=== PATIENT | female | born 1965 | race Two or more races ===

== ENCOUNTER 2017-03-08 13:39 | Emergency (ER) | payer SELFPAY ==
[2017-03-08 14:17] VITALS: TEMP 98.2; BMI 21.9
[2017-03-08] MEDS ORDERED: FAMOTIDINE 20 MG/50 ML IVPB 50 ML IVPB ONE ×2 (14:45→15:24)
[2017-03-08] MEDS ORDERED: MAG HYDROX/AL HYDROX/SIMETH 30 ML UNIT-DOSE CUP PO ONE (14:45)
[2017-03-08] MEDS ORDERED: SODIUM CHLORIDE 1,000 ML IV STA (14:45)
--- NOTE | 2017-03-08 14:45 | PDOC ---
History of Present Illness - General History Source: Patient Exam Limitations: No Limitations <Nely Cook - Last Filed: 03/08/17 16:20> - General History Source: Patient Exam Limitations: No Limitations - History of Present Illness Initial Comments: 03/08/17 16:06 The patient is a 51 year old female, with a significant past medical history of a fatty liver, who presents to the emergency room complaining of epigastric pain and nausea since yesterday. The patient describes the pain as achy, 7/10 in severity, that sometimes makes her double over. The pain was intermittent yesterday, but became constant today. The pain is alleviated when she is laying down, and exacerbated when moving around and being active. Her last meal today was rice and beans for lunch. She states that she has had this pain for years and was told she has ulcers and gastritis. She noticed that spicy food sometimes triggers these episodes of pain. Her most recent episode was last week. Denies fever, chills, vomiting. Denies diarrhea, constipation. Denies urinary changes. Denies recent travel. Allergies: Crabs and strawberries Social Hx: Tobacco use (7 cigarettes/day). Occasional alcohol use. <Aliyah Patrick - Last Filed: 03/08/17 16:55> - General Chief Complaint: Pain, Acute Stated Complaint: ABD PAIN Time Seen by Provider: 03/08/17 14:09 Past History - Past Medical History Liver Disease: (FATTY LIVER.) Psychiatric Problems: Yes (ANXIETY.) - Psycho/Social/Smoking Cessation Hx Anxiety: No Suicidal Ideation: No Smoking Status: No Smoking History: Current every day smoker Number of Cigarettes Smoked Daily: 10 Information on smoking cessation initiated: No Hx Alcohol Use: No Drug/Substance Use Hx: No Substance Use Type: None <Nely Cook - Last Filed: 03/08/17 16:20> <Aliyah Patrick - Last Filed: 03/08/17 16:55> - Past Medical History Allergies/Adverse Reactions: Allergies Allergy/AdvReac Type Severity Reaction Status Date / Time No Known Allergies Allergy Verified 03/08/17 13:48 Home Medications: Ambulatory Orders Dicyclomine HCl [Bentyl -] 10 mg PO Q6H PRN #28 capsule 03/08/17 Ondansetron HCl [Zofran] 4 mg PO BID PRN #10 tablet 03/08/17 Ranitidine [Zantac -] 150 mg PO DAILY #30 tablet 03/08/17 Review of Systems - Review of Systems Able to Perform ROS?: Yes Comments:: 03/08/17 16:06 GENERAL/CONSTITUTIONAL: No: fever, chills, weakness, loss of appetite. HEAD, EYES, EARS, NOSE AND THROAT: No: change in vision, ear pain, discharge, sore throat, throat swelling. CARDIOVASCULAR: No: chest pain, lightheadedness, palpitations, syncope RESPIRATORY: No: cough, shortness of breath, wheezing, hemoptysis, stridor. GASTROINTESTINAL:+epigastric pain and nausea. No: vomiting, abdominal cramping, diarrhea, rectal bleeding, constipation. GENITOURINARY: No: dysuria, hematuria, frequency, urgency, flank pain. MUSCULOSKELETAL: No: back pain, neck pain, joint pain, muscle swelling or pain SKIN: No: lesions, pallor, rash or easy bruising. NEUROLOGIC: No: headache, vertigo, paresthesias, weakness ENDOCRINE: No: unexplained weight gain or loss HEMATOLOGIC/LYMPHATIC: No: anemia, easy bleeding, swelling nodes <Aliyah Patrick - Last Filed: 03/08/17 16:55> *Physical Exam - Vital Signs Last Vital Signs Temp Pulse Resp BP Pulse Ox 98.2 F 84 18 126/63 99 03/08/17 13:42 03/08/17 13:42 03/08/17 13:42 03/08/17 13:42 03/08/17 13:42 <Nely Cook - Last Filed: 03/08/17 16:20> - Vital Signs Last Vital Signs Temp Pulse Resp BP Pulse Ox 98.2 F 84 18 126/63 99 03/08/17 13:42 03/08/17 13:42 03/08/17 13:42 03/08/17 13:42 03/08/17 13:42 - Physical Exam Comments: 03/08/17 16:07 GENERAL: The patient is in no acute distress. HEAD: Normal with no signs of trauma. EYES: PERRLA, EOMI, sclera anicteric, conjunctiva clear. ENT: Ears normal, nares patent, oropharynx clear without exudates. Moist mucous membranes. NECK: Normal range of motion, supple without lymphadenopathy, JVD, or masses. LUNGS: Breath sounds equal, clear to auscultation bilaterally. No wheezes, and no crackles. HEART:Regular rate and rhythm, normal S1 and S2 without murmur, rub or gallop. ABDOMEN: +epigastric tenderness. Soft, normoactive bowel sounds. No guarding, no rebound. EXTREMITIES: Normal range of motion, no edema. No clubbing or cyanosis. No erythema, or tenderness. NEUROLOGICAL: Cranial nerves II through XII grossly intact. Normal speech. No focal neurological deficits. MUSCULOSKELETAL: Back nontender to palpation, no CVA tenderness SKIN: Warm, Dry, normal turgor, no rashes or lesions noted. <Aliyah Patrick - Last Filed: 03/08/17 16:55> ED Treatment Course - LABORATORY CBC & Chemistry Diagram: 03/08/17 15:20 03/08/17 15:20 <Nely oCok - Last Filed: 03/08/17 16:20> - LABORATORY CBC & Chemistry Diagram: 03/08/17 15:20 03/08/17 15:20 - ADDITIONAL ORDERS Additional order review: Laboratory Results 03/08/17 15:20 Sodium 141 Potassium 3.8 Chloride 105 Carbon Dioxide 31 Anion Gap 5 L BUN 10 Creatinine 0.7 D Creat Clearance w eGFR > 60 Random Glucose 87 Calcium 8.9 Total Bilirubin 0.3 D AST 14 L D ALT 18 Alkaline Phosphatase 69 D Total Protein 6.9 Albumin 3.9 Total Amylase 60 Lipase 142 03/08/17 15:20 RBC 4.28 MCV 89.5 MCHC 32.5 RDW 13.8 MPV 9.7 Neutrophils % 60.7 D Lymphocytes % 32.0 D Monocytes % 6.0 Eosinophils % 0.8 D Basophils % 0.5 - RADIOLOGY Radiograph Interpretation: 03/08/17 16:55 EXAM#: TYPE/EXAM: RESULT: 1960-1954 US/ABDOMEN US -LIMITED Evaluate for cholecystitis. Right upper abdomen ultrasound. The liver is within normal limits in size with a slightly coarse echotexture. Gallbladder is adequately distended without intraluminal stones or thickening of its wall. No intra or extrahepatic bile duct dilatation is seen. The right kidney measures 10.4 cm sagittal length and appears unremarkable. Visualized portion of the pancreas appears unremarkable Visualized portion of the proximal abdominal aorta and inferior vena cava appear unremarkable. IMPRESSION: Slightly coarse echotexture of the liver that may be on the basis of mild fatty infiltration. Please correlate with liver enzymes. No gallstones are identified. Unremarkable examination . Reported By: Arlin Huddleston MD 03/08/17 2168 - Medications Given in the ED: ED Medications Discontinued Medications Generic Name Dose Route Start Last Admin Trade Name Galen PRN Reason Stop Dose Admin Al Hydroxide/Mg Hydroxide 30 ml 03/08/17 14:45 03/08/17 15:30 Mylanta Oral Suspension - PO 03/08/17 14:46 30 ml ONCE ONE Administration Famotidine/Sodium Chloride 50 mls @ 100 mls/hr 03/08/17 14:45 03/08/17 15:30 Pepcid 20 Mg Premixed Ivpb - IVPB 03/08/17 15:14 100 mls/hr ONCE ONE Administration Sodium Chloride 1,000 mls @ 1,000 mls/hr 03/08/17 14:45 03/08/17 15:30 Normal Saline - IV 03/08/17 15:44 1,000 mls/hr ASDIR STA Administration Sucralfate 1 gm 03/08/17 14:47 03/08/17 15:30 Carafate - PO 03/08/17 14:48 1 gm NOW ONE Administration <Aliyah Patrick - Last Filed: 03/08/17 16:55> Medical Decision Making - Medical Decision Making 03/08/17 14:45 A portion of this note was documented by scribe services under my direction. I have reviewed the details of the note, within reason, and agree with the documentation with the following case summary and management plan written by me. Nursing documentation reviewed and incorporated into medical decision making 03/08/17 16:14 This patient is a 51-year-old female with a history of anxiety and fatty liver disease who presents emergency department with a complaint of epigastric abdominal pain. Patient states she's had these symptoms for many years, since her childhood. She has intermittent episodes of abdominal pain. She isn't is not sure if she's ever discussed this with her primary care physician (who she no longer has) (and does not know if she's ever been worked up by a GI doctor) she presents today with a recurrence of symptoms since yesterday She states currently pain is 5/10 At its worse, her pain is 12/10 No radiation to the back (+) nausea, no vomiting No diarrhea No fevers or chills No recent travel out of the country No ill contacts She can not associate her symptoms with eating or not, with any particular food On examination: Epigastric tenderness to palpation No abd distention No 03/08/17 16:20 Laboratory Tests 01/07/15 01/07/15 03/08/17 18:45 18:45 15:20 WBC 8.5 8.1 Hgb 13.1 12.5 Hct 41.2 38.3 Plt Count 226 214 BUN 12 D Creatinine 0.5 L Total Bilirubin Total Amylase Lipase 03/08/17 15:20 WBC Hgb Hct Plt Count BUN 10 Creatinine 0.7 D Total Bilirubin 0.3 D Total Amylase 60 Lipase 142 pt sent to US to evaluate for possible cholelithiasis Will discharge to home once reported 03/08/17 16:28 Upon re assessment, pt states that after having medications, her stomach hurts more and she feels like vomiting Will try bentyl Will send for x ray Will sign out for re assessment <Nely Cook - Last Filed: 03/08/17 16:20> *DC/Admit/Observation/Transfer - Discharge Dispostion Admit: No <Nely Cook - Last Filed: 03/08/17 16:20> - Attestations Scribe Attestion: 03/08/17 16:07 Documentation prepared by THOMAS Negron, acting as medical illustrator for Nely Cook MD. <Aliyah Patrick - Last Filed: 03/08/17 16:55> Diagnosis at time of Disposition: Gastritis Qualifiers: Gastritis type: unspecified gastritis Chronicity: chronic Gastritis bleeding: without bleeding Qualified Code(s): K29.50 - Unspecified chronic gastritis without bleeding - Prescriptions Prescriptions: Dicyclomine HCl [Bentyl -] 10 mg PO Q6H PRN #28 capsule PRN Reason: abdominal pain Ranitidine [Zantac -] 150 mg PO DAILY #30 tablet Ondansetron HCl [Zofran] 4 mg PO BID PRN #10 tablet PRN Reason: Nausea - Referrals Referrals: Haja Solitario MD [Primary Care Provider] - Eric Sibley MD [Staff Physician] - Gerry Naranjo MD [Staff Physician] - - Patient Instructions Printed Discharge Instructions: DI for Gastritis Additional Instructions: Thank you for coming in to the ER today Please take medications as prescribed for pain Please return to the ER for persistent or worsening symptoms Please follow up with the intestinal specialist as we discussed - Post Discharge Activity Work/School Note: Back to Work
[2017-03-08] MEDS ORDERED: SUCRALFATE 1 GM TABLET (FP) PO ONE (14:47)
[2017-03-08] MEDS ORDERED: SUCRALFATE 1 GM TABLET (FP) ONE (15:24)
[2017-03-08 15:27] LABS: BASOPHIL 0.5 % (0-2.0); EOSINOPHIL 0.8 % (0-4.5); MCH 29.1 pg (25.7-33.7); MCHC 32.5 g/dl (32.0-36.0); MEAN CELL VOLUME 89.5 fl (80-96); MEAN PLT VOLUME 9.7 fl (7.5-11.1); NEUTROPHILS 60.7 % (42.8-82.8); PLATELET COUNT 214 K/MM3 (134-434); RDW 13.8 % (11.6-15.6); WHITE BLOOD COUNT 8.1 K/mm3 (4.0-10.0)
[2017-03-08 15:51] LABS: ALBUMIN 3.9 g/dl (3.4-5.0); ALK PHOS 69 U/L (45-117); AMYLASE 60 U/L (25-115); ANION GAP 5 (8-16); BILIRUBIN,TOTAL 0.3 mg/dL (0.2-1.0); CALCIUM 8.9 mg/dL (8.5-10.1); CO2 31 mmol/L (21-32); CREATININE 0.7 mg/dL (0.55-1.02); GLUCOSE,RANDOM 87 mg/dL (74-106); SGOT/AST 14 U/L (15-37); SGPT/ALT 18 U/L (12-78); TOT PROT 6.9 g/dl (6.4-8.2)
[2017-03-08] MEDS ORDERED: DICYCLOMINE HCL 10 MG CAPSULE PO ONE (17:36)
[2017-03-08] MEDS ORDERED: DICYCLOMINE HCL 10 MG CAPSULE ONE (17:44)
[2017-03-08 18:26] VITALS: BP 112/80; PULSE 78
== END 2017-03-08 18:26 | disposition home or self-care (01) ==
LOC: JER 13:39 → SUPCPDRO 13:39 → JER 18:26
PROC: 3E033GC Introduction of Other Therapeutic Substance into Peripheral Vein, Percutaneous Approach (ICD-10-PCS; principal; 2017-03-08)
PROC: 3E0337Z Introduction of Electrolytic and Water Balance Substance into Peripheral Vein, Percutaneous Approach (ICD-10-PCS; 2017-03-08)
DX: K29.50 Unspecified chronic gastritis without bleeding (principal); K76.0 Fatty (change of) liver, not elsewhere classified; F17.210 Nicotine dependence, cigarettes, uncomplicated
CPT/HCPCS: 36415; 76705-TC; 80053; 82150; 83690; 85025; 99282-25

== ENCOUNTER 2017-12-17 00:18 | Emergency (ER) | payer SELFPAY ==
[2017-12-17] MEDS ORDERED: diazePAM 5 MG TABLET PO ONE (00:20)
--- NOTE | 2017-12-17 00:24 | PDOC ---
History of Present Illness - General Chief Complaint: Pain, Acute Stated Complaint: NECK PAIN SINCE SATURDAY Time Seen by Provider: 12/17/17 00:19 History Source: Patient Exam Limitations: No Limitations - History of Present Illness Initial Comments: 12/17/17 00:21 This is a 52-year-old female who comes in complaining of neck pain and spasm progressive 3 days. Patient has taken some ibuprofen without relief. Otherwise patient denies any history of trauma. Patient said she cannot move her neck to the left and it is locked in position. Patient has a history of something similar many many years ago but otherwise has been fine patient has history of acid indigestion otherwise no other medical history. PAST MEDICAL HISTORY: no significant history PAST SURGICAL HISTORY: no significant history FAMILY HISTORY: no pertinant history SOCIAL HISTORY: Pt lives with family and is employed. MEDICATIONS: reviewed ALLERGIES: As per nursing notes Review of Systems General: No fevers or chills, no weakness, no weight loss HEENT: Neck pain and spasm CardioVascular: No chest pain or shortness of breath Respiratory:No cough, or wheezing. Gastrointestinal: no nausea, vomitting, diarrhea or constipation, No rectal bleeding Genitourinary: No dysuria, hematuria, or frequency Musculoskeletal: No joint or muscle pain or swelling Neurologic: No headache, vertigo, dizziness or loss of consciousness Psychiatric: nor depression Skin: No rashes or easy bruising Endocrine: no increased thirst or abnormal weight change Allergic: no skin or latex allergy All other systems reviewed and normal GENERAL: The patient is awake, alert, and fully oriented, in no acute distress. HEAD: Normal with no signs of trauma. Neck: There is no tenderness on palpation of the cervical spine. Patient has significant spasm of the right lateral neck and upper shoulder muscles, EYES: Pupils equal, round and reactive to light, extraocular movements intact, sclera anicteric, conjunctiva clear. EXTREMITIES: Normal range of motion, no edema. NEUROLOGICAL: Normal speech, normal gait. grossly intact PSYCH: Normal mood, normal affect. SKIN: Warm, Dry, normal turgor, no rashes or lesions noted. 12/17/17 01:08 Reevaluation patient's symptoms have resolved after the Valium she feels much better Assessment and plan: This is a 52-year-old female came in with torticollis. Patient was given with relief of her symptoms and spasm. Patient discharged home will follow-up with her primary care doctor Past History - Past Medical History Allergies/Adverse Reactions: Allergies Allergy/AdvReac Type Severity Reaction Status Date / Time No Known Allergies Allergy Verified 12/17/17 00:23 Home Medications: Ambulatory Orders NK [No Known Home Medication] 12/17/17 Liver Disease: (FATTY LIVER.) Psychiatric Problems: Yes (ANXIETY.) - Suicide/Smoking/Psychosocial Hx Smoking Status: No Smoking History: Current every day smoker Number of Cigarettes Smoked Daily: 10 Hx Alcohol Use: No Drug/Substance Use Hx: No Substance Use Type: None *DC/Admit/Observation/Transfer Diagnosis at time of Disposition: Torticollis, acute - Discharge Dispostion Disposition: HOME Condition at time of disposition: Stable Admit: No - Referrals - Patient Instructions Printed Discharge Instructions: DI for Torticollis Additional Instructions: Return to the emergency department immediately with ANY new, persistent or worsening symptoms. Continue any medications as previously prescribed by your physician. You should follow up with your primary doctor as soon as possible regarding today's emergency department visit. . Please make sure your doctor reviews the results of your emergency evaluation. Thank you for coming to the Emergency Department today for your care. It was a pleasure to see you today. Please note that your evaluation is INCOMPLETE until you follow-up with your doctor. - Post Discharge Activity
[2017-12-17 00:28] VITALS: BP 105/65; PULSE 72; TEMP 97.8; BMI 22.4
== END 2017-12-17 01:38 | disposition home or self-care (01) ==
LOC: FER 00:18
DX: M43.6 Torticollis (principal); F32.9 Major depressive disorder, single episode, unspecified; F17.210 Nicotine dependence, cigarettes, uncomplicated; K76.0 Fatty (change of) liver, not elsewhere classified
CPT/HCPCS: 99281-25

== ENCOUNTER 2018-08-28 16:23 | Emergency (ER) | payer OTHER ==
[2018-08-28 16:44] VITALS: BP 149/91; PULSE 84; TEMP 98.5; BMI 22.0
[2018-08-28] MEDS ORDERED: DEXAMETHASONE SOD PHOSPHATE 10 MG/1 ML VIAL IM ONE (17:20)
--- NOTE | 2018-08-28 17:23 | PDOC ---
History of Present Illness - General Chief Complaint: Pain, Acute Stated Complaint: PAIN Time Seen by Provider: 08/28/18 16:53 History Source: Patient Exam Limitations: No Limitations - History of Present Illness Initial Comments: 08/28/18 17:18 HISTORY OF PRESENT ILLNESS: 53-year-old woman who presents emergency department for evaluation of left-sided neck and upper back pain which is worsening over 8 months. Patient reports she was seen and evaluated for emergency department in November of this year and was given a 4 day supply of Valium which has helped relieve her pain at that time. Patient reports the pain is been consistence and has not been evaluated by her primary doctor due to lack of insurance. Patient has been taking Motrin 800 mg every 6 hours [id number] for the past 8 months. Patient reports nosebleeds for 1 day every month for the past 3 months. Patient also reports she is a shooting pain which starts from her left neck and extends into her left elbow. She denies any loss of sensation or inability to move. No recent travel or sick contacts. PAST MEDICAL HISTORY: see hpi SURGICAL HISTORY: Denies ALLERGIES: No known drug allergies REVIEW OF SYSTEMS General/Constitutional: Denies fever or chills. Denies weakness, weight change. HEENT: Denies change in vision. Denies ear pain or discharge. Denies sore throat. Cardiovascular: Denies chest pain or shortness of breath. Respiratory: Denies cough, wheezing, or hemoptysis. Gastrointestinal: Denies nausea, vomiting, diarrhea or constipation. Denies rectal bleeding. Genitourinary: Denies dysuria, frequency, or change in urination. Musculoskeletal: See history of present illness Skin and breasts: Denies rash or easy bruising. Neurologic: Denies headache, vertigo, loss of consciousness, or loss of sensation. Psychiatric: Denies depression or anxiety. Endocrine: Denies increased thirst. Denies abnormal weight change. Hematologic/Lymphatic: Denies anemia, easy bleeding, or history of blood clots. Allergic/Immunologic: Denies hives or skin allergy. Denies latex allergy. PHYSICAL EXAM General Appearance: Well-appearing, appropriately dressed. No apparent distress , no intoxication. HEENT: EOMI, PERRLA, normal ENT inspection, normal voice, TMs normal, pharynx normal. No conjunctival pallor. No photophobia, scleral icterus. Neck: Supple. Trachea midline. No tenderness, rigidity, carotid bruit, stridor , lymphadenopathy, or thyromegaly. Respiratory/Chest: Lungs CTAB. No shortness of breath, chest tenderness, respiratory distress, accessory muscle use. No crackles, rales, rhonchi, stridor , wheezing, dullness Cardiovascular: RRR. S1, S2. No JVD, murmur, bradycardia, tachycardia. Musculoskeletal/Extremities: Normal inspection. FROM of all extremities, normal capillary refill. Pelvis Stable. No CVA tenderness. No tenderness to extremities, pedal edema, swelling, erythema or deformity. Neurologic: salon coordinator II-XII intact. Fully oriented, alert. Appropriate mood/affect. Motor strength 5/5. No appreciable EOM palsy, facial droop or sensory deficit. Past History - Past Medical History Allergies/Adverse Reactions: Allergies Allergy/AdvReac Type Severity Reaction Status Date / Time No Known Allergies Allergy Verified 08/28/18 16:44 Home Medications: Ambulatory Orders Diazepam [Valium] 5 mg PO DAILY #4 tablet MDD 1 08/28/18 COPD: No Liver Disease: (FATTY LIVER.) Psychiatric Problems: Yes (ANXIETY.) - Immunization History Immunization Up to Date: Yes - Suicide/Smoking/Psychosocial Hx Smoking Status: No Smoking History: Current every day smoker Have you smoked in the past 12 months: Yes Number of Cigarettes Smoked Daily: 10 Information on smoking cessation initiated: No 'Breaking Loose' booklet given: 12/17/17 Hx Alcohol Use: No Drug/Substance Use Hx: No Substance Use Type: None *Physical Exam - Vital Signs Last Vital Signs Temp Pulse Resp BP Pulse Ox 98.5 F 84 16 149/91 100 08/28/18 16:41 08/28/18 16:41 08/28/18 16:41 08/28/18 16:41 08/28/18 16:41 Moderate Sedation - Procedure Monitoring Vital Signs: Procedure Monitoring Vital Signs Temperature 98.5 F 08/28/18 16:41 Pulse Rate 84 08/28/18 16:41 Respiratory Rate 16 08/28/18 16:41 Blood Pressure 149/91 08/28/18 16:41 O2 Sat by Pulse Oximetry (%) 100 08/28/18 16:41 Medical Decision Making - Medical Decision Making 08/28/18 17:29 A/P: 53-year-old woman with torticollis for 8 months Upper extremity strength 5/5 No palpable muscle spasms Pain and upper back worsens with straightening of the cervical spine Cranial nerves II through XII grossly intact Gait steady This patient has been taking Motrin [id number] for 8 months and is experiencing nosebleeds, I will treat the patient with Decadron here and given a prescription for Valium as outpatient. Patient was encouraged to follow-up with her primary doctor for continued evaluation and potential physical therapy. Patient states she had no primary doctor and referral for Dr. Lambert has been provided. *DC/Admit/Observation/Transfer Diagnosis at time of Disposition: Left torticollis - Discharge Dispostion Disposition: HOME Condition at time of disposition: Stable Decision to Admit order: No - Prescriptions Prescriptions: Diazepam [Valium] 5 mg PO DAILY #4 tablet MDD 1 - Referrals Referrals: Eder Lambert MD [Staff Physician] - - Patient Instructions Additional Instructions: Rest, no heavy lifting or exercise until pain is resolved Hot soaks to neck and low back as often as possible/hot showers or Jacuzzis No massage or therapy until spasm is gone Continue ibuprofen 2-200 mg tablets every 6 hours for the next 3 days then as needed for pain and swelling Valium 5mg every day as needed You've be given a referral for primary doctor. Please call her for follow-up for continued evaluation and treatment. If not significant improvement within 24 hours with medication and rest regime, followup with private physician for change in medications and /or therapy. - Post Discharge Activity
[2018-08-28] MEDS ORDERED: DEXAMETHASONE SOD PHOSPHATE 10 MG/1 ML VIAL ONE (17:24)
== END 2018-08-28 17:51 | disposition home or self-care (01) ==
LOC: JERFT 16:23
PROC: 3E0233Z Introduction of Anti-inflammatory into Muscle, Percutaneous Approach (ICD-10-PCS; principal; 2018-08-28)
DX: M43.6 Torticollis (principal)
CPT/HCPCS: 99281-25; J1100

== ENCOUNTER 2018-12-27 20:44 | Emergency (ER) | payer OTHER ==
[2018-12-27 20:53] VITALS: BP 144/87; PULSE 86; TEMP 98.4; BMI 22.0
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
[2018-12-27] MEDS ORDERED: ACETAMINOPHEN 1000 MG/100 ML VIAL (NON FORMULARY) IVPB ONE (21:40)
[2018-12-27 21:50] LABS: EPI CELLS 1.7 /HPF (0-5); URINE APPEARANCE CLOUDY; URINE BACTERIA >9000 /hpf (NEGATIVE); URINE BILIRUBIN NEGATIVE (NEGATIVE); URINE CASTS 4 /hpf (0-8); URINE COLOR YELLOW; URINE GLUCOSE (UA) NEGATIVE (NEGATIVE); URINE KETONE NEGATIVE (NEGATIVE); URINE LEUK ESTERASE 2+ (NEGATIVE); URINE NITRITE POSITIVE (NEGATIVE); URINE PROTEIN NEGATIVE (NEGATIVE); URINE RBC 2 /hpf (0-4); URINE UROBILINOGEN 0.2 mg/dL (0.2-1.0); URINE WBC 61 /hpf (0-5)
[2018-12-27] MEDS ORDERED: ACETAMINOPHEN INJECTION 100 ML IVPB ONE (21:54)
[2018-12-27 22:21] LABS: BASO % 0.6 % (0-2.0); EOS % 0.5 % (0-4.5); HEMATOCRIT 36.6 % (32.4-45.2); HEMOGLOBIN 12.1 GM/dL (10.7-15.3); LYMPH % 32.7 % (8-40); MEAN CELL VOLUME 90.9 fl (80-96); MEAN PLT VOLUME 9.3 fl (7.5-11.1); MONO % 6.2 % (3.8-10.2); PLATELET COUNT 240 K/MM3 (134-434); RBC 4.02 M/mm3 (3.60-5.2); RDW 14.6 % (11.6-15.6); WHITE BLOOD COUNT 8.8 K/mm3 (4.0-10.0)
[2018-12-27 22:35] LABS: INR 0.95 (0.83-1.09); PROTHROMBIN TIME (PATIENT) 11.2 SEC (9.7-13.0)
[2018-12-27 22:37] LABS: ACTIVATED PTT 38.6 SECONDS (25.2-36.5)
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
[2018-12-27 22:54] LABS: ALBUMIN 3.8 g/dl (3.4-5.0); ALK PHOS 74 U/L (45-117); ANION GAP 7 MMOL/L (8-16); BILIRUBIN,TOTAL 0.1 mg/dL (0.2-1); BLOOD UREA NITROGEN 16 mg/dL (7-18); CALCIUM 8.5 mg/dL (8.5-10.1); CHLORIDE 110 mmol/L (98-107); CO2 26 mmol/L (21-32); CREATININE 0.6 mg/dL (0.55-1.3); GLUCOSE,RANDOM 94 mg/dL (74-106); POTASSIUM 3.8 mmol/L (3.5-5.1); SGOT/AST 15 U/L (15-37); SGPT/ALT 19 U/L (13-61); SODIUM 143 mmol/L (136-145); TOT PROT 6.5 g/dl (6.4-8.2)
--- NOTE | 2018-12-29 10:15 | EKG ---
Test Reason : Blood Pressure : / mmHG Vent. Rate : 062 BPM Atrial Rate : 062 BPM P-R Int : 154 ms QRS Dur : 078 ms QT Int : 398 ms P-R-T Axes : 051 066 047 degrees QTc Int : 403 ms NORMAL SINUS RHYTHM NORMAL ECG WHEN COMPARED WITH ECG OF 08-JAN-2004 16:57, NO SIGNIFICANT CHANGE WAS FOUND Confirmed by DAPHNEY FORD MD ([id number]) on 12/29/2018 10:14:59 AM Referred By: Confirmed By:DAPHNEY FORD MD
== END 2018-12-28 00:53 | disposition home or self-care (01) ==
LOC: JER 20:44
PROC: 3E033NZ Introduction of Analgesics, Hypnotics, Sedatives into Peripheral Vein, Percutaneous Approach (ICD-10-PCS; principal; 2018-12-27)
DX: M54.2 Cervicalgia (principal); V43.52XA Car driver injured in collision with other type car in traffic accident, initial encounter; Y92.414 Local residential or business street as the place of occurrence of the external cause; Y93.89 Activity, other specified; Y99.8 Other external cause status
CPT/HCPCS: 36415; 70450-TC; 71045-TC-FY; 72125-TC; 80053; 81003; 82550; 84484; 85025; 85610; 85730; 86850; 86900; 86901; 87086; 87186; 93005; 93010; 99284-25; J0131

== ENCOUNTER 2019-10-12 17:18 | Emergency (ER) | payer OTHER ==
[2019-10-12 17:43] VITALS: BP 122/76; PULSE 100; TEMP 100.1; BMI 15.6
[2019-10-12] MEDS ORDERED: ACETAMINOPHEN 500 MG TABLET (FP) PO ONE (19:27)
== END 2019-10-12 20:10 | disposition left against medical advice (07) ==
LOC: JERFT 17:18
DX: Z53.21 Procedure and treatment not carried out due to patient leaving prior to being seen by health care provider (principal)
CPT/HCPCS: 99281-25

== ENCOUNTER 2019-12-04 10:42 | Emergency (ER) | payer OTHER ==
[2019-12-04 10:59] VITALS: TEMP 98; BMI 15.2
[2019-12-04] MEDS ORDERED: MECLIZINE HCL 25 MG TABLET (FP) PO ONE (11:31)
[2019-12-04] MEDS ORDERED: SODIUM CHLORIDE 1,000 ML IV STA (11:31)
[2019-12-04] MEDS ORDERED: MECLIZINE HCL 25 MG TABLET (FP) ONE (11:48)
[2019-12-04] MEDS ORDERED: LORazepam 2 MG/ML SDV VIAL ONE (11:49)
--- NOTE | 2019-12-04 11:56 | PDOC ---
History of Present Illness - General Chief Complaint: Lightheaded Stated Complaint: WEAKNESS Time Seen by Provider: 12/04/19 11:22 - History of Present Illness Initial Comments: 12/04/19 12:33 The patient is a 54 year old female with a history of fatty liver who presents for evaluation of dizziness, lightheadedness, and generalized weakness. The patient reports acute onset of room spinning dizziness this morning with associated lightheadedness and generalized weakness prompting her presentation to the ED for further evaluation. She notes an episode of chest tightness that self resolved at the onset of her symptoms as well. She states that she has been having headaches recently, but denies any currently. She notes that her symptoms are worse with head movement. She otherwise denies fevers, chills, neck pain, SOB, nausea, vomiting, abdominal pain, numbness, tingling, weakness, or changes with urination or bowel movements. Past History - Past Medical History Allergies/Adverse Reactions: Allergies Allergy/AdvReac Type Severity Reaction Status Date / Time No Known Allergies Allergy Verified 12/04/19 10:55 Home Medications: Ambulatory Orders Diazepam [Valium] 5 mg PO DAILY #4 tablet MDD 1 08/28/18 Cephalexin [Keflex] 500 mg PO BID #14 capsule 12/30/18 Meclizine HCl [Antivert -] 25 mg PO TID #21 tablet 12/04/19 Cancer: Yes (CERVICAL) COPD: No Liver Disease: Yes (FATTY LIVER.) Psychiatric Problems: Yes (ANXIETY.) - Immunization History Immunization Up to Date: Yes - Psycho Social/Smoking Cessation Hx Smoking Status: No Smoking History: Never smoked Have you smoked in the past 12 months: Yes Number of Cigarettes Smoked Daily: 6 'Breaking Loose' booklet given: 12/17/17 Hx Alcohol Use: No Drug/Substance Use Hx: No Substance Use Type: None Review of Systems - Review of Systems Comments:: 12/04/19 12:36 Constitutional: Fatigue. No fevers, chills, malaise HEENT: No Rhinorrhea, nasal congestion, visual changes Cardiovascular: Lightheadedness, chest tightness. No syncope, palpitations, Respiratory: No Cough, SOB, Hemoptysis, Gastrointestinal: No Abdominal pain, Nausea, Vomiting, Constipation, Diarrhea, Melena Genitourinary: No Dysuria, Frequency, Urgency, Hesitancy, Hematuria, Flank pain Musculoskeletal: No Myalgia, arthralgia Skin: No rashes, itching, bruising, pallor Neurologic: Dizziness. No Headache, Numbness, Weakness, or Tingling Psychiatric: No Hallucinations. No SI or HI *Physical Exam - Vital Signs Last Vital Signs Temp Pulse Resp BP Pulse Ox 98.0 F 89 16 105/68 99 12/04/19 10:56 12/04/19 10:56 12/04/19 10:56 12/04/19 10:56 12/04/19 10:56 - Physical Exam 12/04/19 12:37 General Appearance: Nourished. No Apparent Distress HEENT: EOMI, BRANDON. Horizontal nystagmus noted on exam. No Pharyngeal Erythema, Tonsillar Exudate, Tonsillar Erythema Neck: No Cervical Lymphadenopathy Respiratory/Chest: Lungs Clear, Normal Breath Sounds. No Crackles, Rales, Rhonchi, Wheezing Cardiovascular: Regular Rhythm, Regular Rate. No Murmur, Gallops, Rubs Gastrointestinal/Abdominal: Normal Bowel Sounds, Soft. No Guarding, Rebound, Tenderness Musculoskeletal: No CVA Tenderness Extremity: Normal Capillary Refill Integumentary: Normal Color, Dry, Warm Neurologic: ranch helper II-XII NML intact, Fully Oriented, Alert, Normal Mood/Affect, Normal Response, Motor Strength 5/5. Normal Finger to Nose and Heel to [place] ED Treatment Course - LABORATORY CBC & Chemistry Diagram: 12/04/19 12:08 12/04/19 12:08 - RADIOLOGY Radiology Studies Ordered: Category Date Time Status CHEST X-RAY PORTABLE* [RAD] Stat Radiology 12/04/19 11:31 Completed Medical Decision Making - Medical Decision Making 12/04/19 12:37 The patient is a 54 year old female with a history of fatty liver who presents for evaluation of dizziness, lightheadedness, and generalized weakness. Given the patient's history and physical exam, we will obtain a cbc, cmp, troponin, chest plain film, ekg, head CT to evaluate further. We will treat with meclazin e, iv fluids, 0.5mg of ativan and continue to monitor and reassess while here in the ED. 12/04/19 15:13 CBC, cmp, troponin were unremarkable. Head CT did not demonstrate any acute pathology as read by our radiologist. Chest Xray did not demonstrate any acute pathology. The patient was reassessed and reports improvement in their symptoms. We are comfortable discharging the patient home in stable condition. Patient and family made aware of impression and plan, return precautions discussed including but not limited to worsening pain or symptoms, fevers, or signs of infection, chest pain, respiratory distress, inability to tolerate oral intake, dehydration, syncope, or neurologic changes. The patient is to follow up with PMD and specialist as recommended within 1 week, follow up information provided and the patient will call for an appointment. The patient is to take medications as instructed for duration of time and continue with supportive care, avoid triggers and precipitants. Patient is safe for outpatient follow-up. Discharge - Discharge Information Problems reviewed: Yes Clinical Impression/Diagnosis: Dizziness Condition: Stable Disposition: HOME - Admission No - Additional Discharge Information Prescriptions: Meclizine HCl [Antivert -] 25 mg PO TID #21 tablet - Follow up/Referral Referrals: Osmin Moon MD [Staff Physician] - - Patient Discharge Instructions Patient Printed Discharge Instructions: DI for Vertigo Additional Instructions: 1) Please follow-up with your primary care doctor in the next 2-3 days. Please call tomorrow to schedule a follow up appointment. If you cannot follow up with your doctor within 1 week please return to the Emergency Department for any urgent issues. 2) Your laboratory / imaging results were normal here in the ER. 3) If you have any worsening of symptoms or any other concerns, please return to the ER immediately. Return if worsening symptoms including fevers, headache, vomiting, visual or hearing disturbances, abdominal pain, chest pain, shortness of breath, syncope, dehydration, inability to take things by mouth/vomiting, altered mental status, or worsening concerning symptoms. 4) Please continue taking your home medications as directed. Your medications on discharge include Meclazine . Side effects may include upset stomach, abdominal pain, vomiting, or diarrhea. Do not drink alcohol with your medications. - Post Discharge Activity
[2019-12-04 12:20] VITALS: BP 136/78; PULSE 73
[2019-12-04 12:36] LABS: BASO % 0.9 % (0-2.0); EOS % 0.2 % (0-4.5); HEMATOCRIT 35.8 % (32.4-45.2); HEMOGLOBIN 11.7 GM/dL (10.7-15.3); LYMPH % 20.9 % (8-40); MCH 30.5 pg (25.7-33.7); MCHC 32.7 g/dl (32.0-36.0); MEAN CELL VOLUME 93.4 fl (80-96); MEAN PLT VOLUME 9.6 fl (7.5-11.1); MONO % 5.9 % (3.8-10.2); NEUT % 72.1 % (42.8-82.8); PLATELET COUNT 222 K/MM3 (134-434); RBC 3.83 M/mm3 (3.60-5.2); RDW 15.7 % (11.6-15.6); WHITE BLOOD COUNT 10.5 K/mm3 (4.0-10.0)
[2019-12-04 13:05] LABS: ALBUMIN 3.7 g/dl (3.4-5.0); ALK PHOS 68 U/L (45-117); ANION GAP 6 MMOL/L (8-16); BILIRUBIN,TOTAL 0.2 mg/dL (0.2-1); BLOOD UREA NITROGEN 12.8 mg/dL (7-18); CALCIUM 8.6 mg/dL (8.5-10.1); CHLORIDE 109 mmol/L (98-107); CO2 28 mmol/L (21-32); CREATININE 0.6 mg/dL (0.55-1.3); GLUCOSE,RANDOM 79 mg/dL (74-106); POTASSIUM 3.9 mmol/L (3.5-5.1); SGOT/AST 14 U/L (15-37); SGPT/ALT 19 U/L (13-61); SODIUM 143 mmol/L (136-145); TOT PROT 6.3 g/dl (6.4-8.2)
--- NOTE | 2019-12-04 15:11 | PDOC ---
Documentation entered by Mahendra Pickering SCRIBE, acting as scribe for Claudio Zimmer MD. Claudio Zimmer MD: This documentation has been prepared by the Ladan villalobos Nirvannie, SCRIBE, under my direction and personally reviewed by me in its entirety. I confirm that the documentation accurately reflects all work, treatment, procedures, and medical decision making performed by me. Attending Attestation - Resident Resident Name: Cipriano Sawant - ED Attending Attestation I have performed the following: I have examined & evaluated the patient, The case was reviewed & discussed with the resident, I agree w/resident's findings & plan, Exceptions are as noted - HPI HPI: 12/04/19 13:17 CC:dizziness, lightheadedness, and generalized weakness HPI: The patient is a 54 year old female, with a significant past medical history of fatty liver disease, who presents to the emergency department with acute onset 1 day of dizziness, lightheadedness, and generalized weakness. Patient endorses an associated episode of transient chest tightness which has since resolved. She notes associated increasing headaches but denies any currently. She denies any head/neck trauma Allergies: NKDA - Physicial Exam PE: 12/04/19 15:11 Vitals: Triage Vital signs reviewed General Appearance: No acute distress, well nourished well developed, Head: Atraumatic, Eyes: Pupils equal reactive round, extraocular movement intact Chest Wall: Nontender all some sounds good and neuro Cardiac: Regular rate and rhythym, no murmurs, no rubs, no gallops, Lungs: Clear to auscultation bilateral, good air movement bilaterally, Abdomen: Soft, non distended, normal bowel sounds, non tender to palpation Extremities: Full range of motion to all extremities, no cyanosis, clubbing, or edema Skin: Warm and dry, no rashes or lesions, no rash, no petechiae Neuro: AOX3; cranial Nerves 2-12 grossly intact, strength intact to all extremities, sensation intact to all extremities, gait normal Psych: Normal mood, normal affect - Medical Decision Making 12/04/19 13:17 54 year old female, with a significant past medical history of fatty liver disease, who presents to the emergency department with acute onset 1 day of dizziness, lightheadedness, and generalized weakness. Plan is: Head CT EKG Ativan Meclizine Fluids 12/04/19 15:13 Nonfocal neurologic exam positional lightheadedness/vertigo vertigo worse when looking to the right Head CT negative labs within normal limits status post fluids meclizine and small dose Ativan patient feels much better symptoms have resolved will discharge home with neurology follow-up patient endorses she will follow-up Findings, the need for follow-up and strict return instructions discussed with patient.
--- NOTE | 2019-12-05 10:30 | EKG ---
Test Reason : Blood Pressure : / mmHG Vent. Rate : 073 BPM Atrial Rate : 073 BPM P-R Int : 136 ms QRS Dur : 078 ms QT Int : 386 ms P-R-T Axes : 072 069 057 degrees QTc Int : 425 ms NORMAL SINUS RHYTHM POSSIBLE LEFT ATRIAL ENLARGEMENT BORDERLINE ECG WHEN COMPARED WITH ECG OF 27-DEC-2018 21:46, NO SIGNIFICANT CHANGE WAS FOUND Confirmed by Rey Choudhury MD ([id number]) on 12/05/2019 10:30:12 AM Referred By: Confirmed By:Rey Choudhury MD
== END 2019-12-04 15:38 | disposition home or self-care (01) ==
LOC: JER 10:42
PROC: 3E033NZ Introduction of Analgesics, Hypnotics, Sedatives into Peripheral Vein, Percutaneous Approach (ICD-10-PCS; principal; 2019-12-04)
PROC: 3E0337Z Introduction of Electrolytic and Water Balance Substance into Peripheral Vein, Percutaneous Approach (ICD-10-PCS; 2019-12-04)
DX: R42 Dizziness and giddiness (principal); K76.0 Fatty (change of) liver, not elsewhere classified
CPT/HCPCS: 36415; 70450-TC; 71045-TC-FY; 80053; 82550; 84484; 85025; 93005; 93010; 96361; 96374; 99285-25; J7030